=== PATIENT | male | born 1975 | race Two or more races ===

== ENCOUNTER 2024-07-11 10:55 | Day surgery (SDC) | payer BC, SELFPAY ==
[2024-07-10 12:48] VITALS: BMI 30.8
[2024-07-11] VITALS (7 sets, daily range): BP systolic 110–149; BP diastolic 70–88; PULSE 72–86; RESP 15–25; TEMP 36.9–37.2; O2SAT 95–98; BMI 30.9
--- NOTE | 2024-07-11 14:12 | SUR.PHASEII ---
pt received from OR in recovery bay 1. pt asleep but responds to voice, breathing unlabored on nc 4l. v/s stable. report received from [facility].
--- NOTE | 2024-07-11 14:29 | SUR.PHASEII ---
pt able to tolerate oral fluids without difficulty swallowing or nausea/vomiting.
--- NOTE | 2024-07-11 14:48 | SUR.PHASEII ---
pt awake and alert, breathing unlabored on room air. v/s stable. pt able to ambulate to wheelchair with steady gait. d/c instructions given with Page in room, all questions answered. pt d/c via wheelchair with all belongings.
== END 2024-07-11 14:48 | disposition home or self-care (01) ==
PROVIDERS: Referring Provider Internal Medicine Gastroenterology; Visit Provider Internal Medicine Gastroenterology
PROC: 0DJD8ZZ Inspection of Lower Intestinal Tract, Via Natural or Artificial Opening Endoscopic (ICD-10-PCS; CPT 45378; principal; 2024-07-11 13:00)
DX: K64.8 Other hemorrhoids (principal); K63.89 Other specified diseases of intestine
CPT/HCPCS: 45380; A4217; A4649; A9270